=== PATIENT | male | born 1980 | race Caucasian/White ===

== ENCOUNTER 2019-07-07 12:40 | Emergency (ER) | payer MEDICAID ==
[2019-07-07 12:52] VITALS: BP 142/96
[2019-07-07] MEDS ORDERED: SULFAMETH/TRIMETH DS 800/160 MG TABLET PO STA (13:00)
--- NOTE | 2019-07-07 13:03 | ED Physician Documentation ---
PD HPI SKIN - Stated complaint Stated Complaint: LEGS SWOLLEN - Chief complaint Chief Complaint: Wound - History obtained from History obtained from: Patient (Healthy 39-year-old gentleman had what he describes as mosquito bites or bug bites on both legs about 5 days ago and has a pretty aggressive leg swelling especially of the left over the last 4 days with multiple scabbed wounds and ulcers especially in the left leg. He also notes a sore in the right nares. No fevers, chills, body aches, or fatigue.) Review of Systems Constitutional: denies: Fever, Chills, Myalgias, Fatigue, Weight Loss Throat: denies: Sore throat Respiratory: denies: Cough GI: denies: Abdominal Pain, Vomiting, Diarrhea PD PAST MEDICAL HISTORY - Past Medical History Past Medical History: No - Past Surgical History Past Surgical History: No - Present Medications Home Medications: Ambulatory Orders Medication Instructions Recorded Confirmed Clindamycin HCl 300 mg PO Q6H #28 capsule 11/03/13 oxyCODONE/ACET 5/325 [Percocet 5 1 - 2 each PO Q4-6H PRN #20 tablet 11/03/13 mg/325 mg] Chlorhexidine Gluconate [Hibiclens] 10 ml TP DAILY #1 bot 07/07/19 Mupirocin 1 gm LILIANE TID #2 oin.pf.tammy 07/07/19 Sulfamethoxazole/Trimethoprim 1 each PO BID #20 tablet 07/07/19 [Sulfamethoxazole-Tmp Ds Tablet] - Allergies Allergies/Adverse Reactions: Allergies Allergy/AdvReac Type Severity Reaction Status Date / Time No Known Drug Allergies Allergy Verified 11/03/13 02:00 - Social History Does the pt smoke?: Yes Smoking Status: Current every day smoker Does the pt drink ETOH?: Yes PD ED PE NORMAL - Vitals Vital signs reviewed: Yes - General General: Alert and oriented X 3, No acute distress - HEENT HEENT: Moist mucous membranes - Neck Neck: Supple, no meningeal sign, No bony TTP - Extremities Extremities: Other (He has multiple areas on the left leg with shallow dime to nickel sized ulcers, maybe with just a touch of purulent drainage with cellulitis especially the left leg. There was one on the left posterior calf which was cultured during examination.) - Neuro Neuro: Alert and oriented X 3, Normal speech Results - Vitals Vitals: Vital Signs - 24 hr 07/07/19 12:45 Temperature 36.6 C Heart Rate 100 Respiratory 16 Rate Blood Pressure 142/96 H O2 Saturation 99 Oxygen O2 Source Room air PD MEDICAL DECISION MAKING - ED course ED course: This is a 39-year-old gentleman with appears to be staphylococcal cellulitis especially the left leg; probably he is diffusely colonized and is treated with Bactrim, nasal mupirocin and Hibiclens. Departure - Departure Disposition: 01 Home, Self Care Clinical Impression: Cellulitis and abscess of left leg Condition: Good Record reviewed to determine appropriate education?: Yes Instructions: Cellulitis Dc, ED Staph Infec Abx Tx Only Prescriptions: Chlorhexidine Gluconate [Hibiclens] 10 ml TP DAILY #1 bot Mupirocin 1 gm LILIANE TID #2 oin.pf.tammy Sulfamethoxazole/Trimethoprim [Sulfamethoxazole-Tmp Ds Tablet] 1 each PO BID #20 tablet Comments: We are performing a wound culture, the results should be done in 48-72 hours. If antibiotic change is necessary we will call you. Return if worse in the meantime, especially if you develop increased pain, fevers, cannot keep down the medication. Otherwise follow-up with your physician in approximately 2-3 days. Your blood pressure was elevated today on check into the emergency department. This does not mean that you have hypertension, it is a common phenomenon to come to the emergency department and have elevated blood pressure. I recommend that you see your primary care physician within the week to have it rechecked when you are feeling better.
== END 2019-07-07 13:12 | disposition home or self-care (01) ==
LOC: ED 12:40
DX: L02.416 Cutaneous abscess of left lower limb (principal); L03.116 Cellulitis of left lower limb; L97.229 Non-pressure chronic ulcer of left calf with unspecified severity; R03.0 Elevated blood-pressure reading, without diagnosis of hypertension; F17.200 Nicotine dependence, unspecified, uncomplicated
CPT/HCPCS: 87070; 87181; 87205; 99283; A9270

== ENCOUNTER 2020-10-11 15:58 | Emergency (ER) | payer MEDICAID ==
[2020-10-11 16:05] VITALS: BP 126/71
[2020-10-11] MEDS ORDERED: CLINDAMYCIN 150 MG CAPSULE PO STA (16:23)
--- NOTE | 2020-10-11 16:25 | ED Physician Documentation ---
History of Present Illness - Stated complaint Stated Complaint: LEGS ON FIRE/SWOLLEN - Chief complaint Chief Complaint: Ext Problem - History obtained from History obtained from: Patient - Additonal information Additional information: 40yo M presents w/ redness, pain, and swelling in both feet and lower legs. Present on/off for 8+ months, but worsened recently. He sustained a burn on the lateral left lower leg about a month ago which has since healed but then he developed worsening redness and discomfort n the left leg. He now has it in the right leg as well. Pt states he has been intermittently homeless and does wear tight, contricting boots and socks, sometimes for 48+ hours at a time, because he doesn't always have access to wash and change his footwear. His feet get sweaty or wet within the boots and he showed me a video of his feet a few days ago that show wet, wrinkled feet. He is also on his feet a lot and doesn't always have a place where he can lay down and keep feet elevated. He reports hx/o cellulitis, treated w/ clinda in the past which helped. Denies fever or systemic sx. Review of Systems Constitutional: reports: Reviewed and negative Throat: reports: Reviewed and negative Cardiac: reports: Reviewed and negative Respiratory: reports: Reviewed and negative GI: reports: Reviewed and negative : reports: Reviewed and negative Skin: reports: Rash Musculoskeletal: reports: Extremity pain, Extremity swelling. denies: Neck pain, Back pain, Joint pain, Joint swelling Neurologic: reports: Reviewed and negative Psychiatric: reports: Reviewed and negative Endocrine: reports: Reviewed and negative PD PAST MEDICAL HISTORY - Past Medical History Cardiovascular: None Respiratory: None Neuro: None Endocrine/Autoimmune: None GI: None : None HEENT: None Psych: None Musculoskeletal: None Derm: Other - Past Surgical History Past Surgical History: No - Present Medications Home Medications: Ambulatory Orders Medication Instructions Recorded Confirmed Clindamycin HCl 300 mg PO Q6H #28 capsule 11/03/13 oxyCODONE/ACET 5/325 [Percocet 5 1 - 2 each PO Q4-6H PRN #20 tablet 11/03/13 mg/325 mg] Chlorhexidine Gluconate [Hibiclens] 10 ml TP DAILY #1 bot 07/07/19 Mupirocin 1 gm LILIANE TID #2 oin.pf.tammy 07/07/19 Sulfamethoxazole/Trimethoprim 1 each PO BID #20 tablet 07/07/19 [Sulfamethoxazole-Tmp Ds Tablet] Clindamycin [Cleocin] 300 mg PO Q6H 7 Days #42 capsule 10/11/20 - Allergies Allergies/Adverse Reactions: Allergies Allergy/AdvReac Type Severity Reaction Status Date / Time No Known Drug Allergies Allergy Verified 10/11/20 16:01 - Social History Does the pt smoke?: Yes Smoking Status: Current every day smoker Does the pt drink ETOH?: No Does the pt have substance abuse?: Yes Substance Use and Type: Marijuana - Immunizations Immunizations are current?: No Immunizations: TDAP >10years/unknown PD ED PE NORMAL - Vitals Vital signs reviewed: Yes - General General: Alert and oriented X 3, No acute distress, Well developed/nourished - HEENT HEENT: Atraumatic, Moist mucous membranes, Pharynx benign - Neck Neck: Supple, no meningeal sign, No JVD - Cardiac Cardiac: RRR, No murmur, No gallop, No rub - Respiratory Respiratory: No respiratory distress, Clear bilaterally - Abdomen Abdomen: Normal bowel sounds, Soft, Non tender, Non distended - Derm Derm: Other (redness top of foot to mid brizuela bilat following outline of boots/socks, tender but not particularly warm. skin is peeling, dry, wrinkled. bottoms of feet are calloused, slightly whitish and appear to have been wet for prolonged period. no current drainage or abscess noted) - Extremities Extremities: No deformity, Other (edema around both ankles and feet, no calf pain or fullness. full rom of the feet/legs. ) - Neuro Neuro: Alert and oriented X 3 Eye Opening: Spontaneous Motor: Obeys Commands Verbal: Oriented GCS Score: 15 - Psych Psych: Normal mood, Normal affect Results - Vitals Vitals: Vital Signs - 24 hr 10/11/20 16:02 Temperature 36.8 C Heart Rate 98 Respiratory 18 Rate Blood Pressure 126/71 O2 Saturation 100 Oxygen O2 Source Room air PD MEDICAL DECISION MAKING - ED course Complexity details: re-evaluated patient, considered differential, d/w patient ED course: Pt presented with redness and discomfort of both legs. Give his history, suspect trench foot with possible cellulitis as well. I have discussed supportive treatment for mild trenchfoot w/ pt though these measures will be difficult as he does not have a regular place to sleep or access to clean/dry socks and shoes all of the time. I will also treat for possible cellulitis w/ clinda which has been effective for patient in the past. Pt is afebrile w/o any systemic sx so I do not think labs or additional workup is necessary at this time. Pt to follow up with a primary doctor within 1 week (provided with options locally) and I reviewed return precautions n detail w/ pt including fever, increased pain/spreading redness/swelling. Departure - Departure Disposition: Home, Self Care Clinical Impression: Trench feet Cellulitis Qualifiers: Site of cellulitis: extremity Site of cellulitis of extremity: lower extremity Laterality: unspecified laterality Qualified Code(s): L03.119 - Cellulitis of unspecified part of limb Condition: Good Instructions: Cellulitis Dc Prescriptions: Clindamycin [Cleocin] 300 mg PO Q6H 7 Days #42 capsule Comments: You likely have mild trench foot which is redness, pain, and swelling that can occur after prolonged exposure to both hot or cold and wet conditions, especially with constricting boots or socks in place. I am going to treat you for a cellulitis (infection of the skin) but I suspect the redness and discomfort will persist to some degree due to the trenchfoot which can cause nursing home difficulty, especially with recurrent exposure to difficult conditions. Please take antibiotics and try to do the following: Avoid cold/wet conditions. If it is not possible to avoid cold, wet conditions, limit exposure as much as possible. Wear clothing that provides thermal protection but is not constricting. Change socks regularly. This is extremely important. This is especially important for foot gear. Feet should be kept as dry as possible. Vapor barrier boots can be effective in retaining warmth and avoiding wet feet but can become wet from within. Foot care should include changing into dry socks two or three times daily in high-risk conditions. Stay active. Movement is important to maintain adequate circulation in the extremities. Avoid prolonged dependency of the feet and keep your legs elevated when ever possible. Avoid malnutrition, dehydration, and fatigue. Use a hypoallergenic emollient to massage into the feet and legs but only do this if you have time to air them out and keep them dry. Try not to wear socks at night if you are able to be warm enough without them. Please establish care with a primary doctor.
== END 2020-10-11 17:09 | disposition home or self-care (01) ==
LOC: ED 15:58
DX: T69.022A Immersion foot, left foot, initial encounter (principal); T69.021A Immersion foot, right foot, initial encounter; L03.119 Cellulitis of unspecified part of limb; W93.8XXA Exposure to other excessive cold of man-made origin, initial encounter; Z59.0 Homelessness; F17.200 Nicotine dependence, unspecified, uncomplicated
CPT/HCPCS: 99282; 99284; A9270

== ENCOUNTER 2021-03-31 12:19 | Emergency (ER) | payer MEDICAID ==
--- NOTE | 2021-03-31 13:23 | ED Physician Documentation ---
PD HPI HEENT - Stated complaint Stated Complaint: TOOTH PX - Chief complaint Chief Complaint: Heent - History obtained from History obtained from: Patient PD PAST MEDICAL HISTORY - Past Medical History Cardiovascular: None Respiratory: None Neuro: None Endocrine/Autoimmune: None GI: None : None HEENT: None Psych: None Musculoskeletal: None Derm: Other - Past Surgical History Past Surgical History: No - Present Medications Home Medications: Ambulatory Orders Medication Instructions Recorded Confirmed Clindamycin HCl 300 mg PO Q6H #28 capsule 11/03/13 oxyCODONE/ACET 5/325 [Percocet 5 1 - 2 each PO Q4-6H PRN #20 tablet 11/03/13 mg/325 mg] Chlorhexidine Gluconate [Hibiclens] 10 ml TP DAILY #1 bot 07/07/19 Mupirocin 1 gm LILIANE TID #2 oin.pf.tammy 07/07/19 Sulfamethoxazole/Trimethoprim 1 each PO BID #20 tablet 07/07/19 [Sulfamethoxazole-Tmp Ds Tablet] Clindamycin [Cleocin] 300 mg PO Q6H 7 Days #42 capsule 10/11/20 - Allergies Allergies/Adverse Reactions: Allergies Allergy/AdvReac Type Severity Reaction Status Date / Time No Known Drug Allergies Allergy Verified 03/31/21 12:39 - Social History Does the pt smoke?: Yes Smoking Status: Current every day smoker Does the pt drink ETOH?: No Does the pt have substance abuse?: Yes - Immunizations Immunizations are current?: No Immunizations: TDAP >10years/unknown Results - Vitals Vitals: Vital Signs - 24 hr 03/31/21 12:35 Temperature 37 C Heart Rate 92 Respiratory 16 Rate Blood Pressure 140/89 H O2 Saturation 100 Oxygen O2 Source Room air
[2021-03-31] MEDS ORDERED: AMOX/CLAV 875 MG/125 MG TABLET PO STA (13:41)
[2021-03-31] MEDS ORDERED: HYDROcod/ACETAM 5/325 MG TABLET PO STA (13:41)
--- NOTE | 2021-03-31 13:44 | ED Physician Documentation ---
History of Present Illness - Stated complaint Stated Complaint: TOOTH PX - Chief complaint Chief Complaint: Heent - Additonal information Additional information: 41-year-old male presents emergency department for evaluation of acute left lowe r molar pain that began this a.m. When he woke up he had significant pain in the lower jaw and began developing swelling. No fevers, no trismus no dysphonia or dysphagia. He has not seen a dentist for many years. Positive tobacco history no smokeless tobacco. Review of Systems Constitutional: denies: Fever, Chills Eyes: reports: Reviewed and negative Ears: reports: Reviewed and negative Nose: reports: Reviewed and negative Throat: reports: Dental pain / toothache. denies: Swollen tonsils, Swallowed foreign body Cardiac: reports: Reviewed and negative Respiratory: reports: Reviewed and negative GI: reports: Reviewed and negative : reports: Reviewed and negative PD PAST MEDICAL HISTORY - Past Medical History Past Medical History: No Cardiovascular: None Respiratory: None Neuro: None Endocrine/Autoimmune: None GI: None : None HEENT: None Psych: None Musculoskeletal: None Derm: Other - Past Surgical History Past Surgical History: No - Present Medications Home Medications: Ambulatory Orders Medication Instructions Recorded Confirmed Amox/Clav 875/125 [Augmentin] 1 each PO Q12H #20 tablet 03/31/21 HYDROcod/ACETAM 5/325 [[place] 5/325] 1 tab PO BID PRN #10 tablet 03/31/21 Ibuprofen [Motrin] 600 mg PO Q6H PRN #30 tab 03/31/21 - Allergies Allergies/Adverse Reactions: Allergies Allergy/AdvReac Type Severity Reaction Status Date / Time No Known Drug Allergies Allergy Verified 03/31/21 12:39 - Social History Does the pt smoke?: Yes Smoking Status: Current every day smoker Does the pt drink ETOH?: No Does the pt have substance abuse?: Yes Substance Use and Type: Marijuana - Immunizations Immunizations are current?: Yes Immunizations: TDAP >10years/unknown - POLST Patient has POLST: No PD ED PE EXPANDED - General General: Alert. No: No acute distress, Well developed/nourished - HEENT HEENT: Dental decay (Teeth in generally poor repair. Many teeth missing or rotted to the gumline.), Dental TTP (Tooth #19 with tenderness to pressure. Some generalized gumline swelling and erythema without fluctuance or drainage), Dental abscess, Other (Mild left facial swelling lower jaw to the angle of the mandible. No erythema.). No: Dentition normal - Neck Neck: Supple w/out meningeal sx. No: Adenopathy - Cardiac Cardiac: Regular Rate, Radial strong equal, Cap refill < 2 sec. No: Murmur Present - Respiratory Respiratory: Clear to ausultation wallace. No: Distress, Labored Results - Vitals Vitals: Vital Signs - 24 hr 03/31/21 12:35 Temperature 37 C Heart Rate 92 Respiratory 16 Rate Blood Pressure 140/89 H O2 Saturation 100 Oxygen O2 Source Room air PD MEDICAL DECISION MAKING - ED course Complexity details: reviewed results ED course: 41-year-old male presents emergency department with acute left lower jaw facial swelling and dental pain. Has not seen a dentist in many years. Tooth #19 obviously decayed quite tender. Suspect apical abscess at this time patient will be initiated on Augmentin. Advised warm salt water rinses. He will need dentist for further evaluation and treatment. Advised that he should return to the emergency department with increased swelling, any fevers trismus dysphonia or dysphagia. Departure - Departure Disposition: 01 Home, Self Care Clinical Impression: Dental abscess Condition: Stable Record reviewed to determine appropriate education?: Yes Instructions: ED Abscess Dental Prescriptions: Amox/Clav 875/125 [Augmentin] 1 each PO Q12H #20 tablet Ibuprofen [Motrin] 600 mg PO Q6H PRN #30 tab PRN Reason: Pain HYDROcod/ACETAM 5/325 [[place] 5/325] 1 tab PO BID PRN #10 tablet PRN Reason: Pain Comments: Sebastian it is important he see a dentist in the long-term as your tooth likely needs to be extracted in order to have this fully resolved. I have written a prescription for Augmentin that you are to take twice daily for the next 10 days. Please rinse your mouth with warm salty water for 30 seconds 3 times a day. I have prescribed a limited amount of hydrocodone for severe pain only. Do not drive if taking this it can legally intoxicated you. Please return to the emergency department if you have increased facial swelling despite the antibiotics and salt water rinses, cannot swallow or speak normally. Ideally you would be able to schedule an appointment for follow-up with a dentist in about 2 weeks time once this infection has resolved.
[2021-03-31 13:58] VITALS: BP 136/89
== END 2021-03-31 14:07 | disposition home or self-care (01) ==
LOC: ED 12:19
DX: K04.7 Periapical abscess without sinus (principal); F17.200 Nicotine dependence, unspecified, uncomplicated
CPT/HCPCS: 99283; 99284; A9270

== ENCOUNTER 2021-04-26 19:44 | Emergency (ER) | payer MEDICAID ==
--- OUTSIDE RECORDS SUMMARY | 2021-04-26 19:47 | EXTERNAL MEDICAL SUMMARY RPT | Continuity of Care Document ---
:1980 Demographics Phone Unavailable Preferred Language Unknown Marital Status Unknown Anabaptism Affiliation Unknown Race Unknown Ethnic Group Unknown Author Organization [facility] Address [address] [phone] Phone Allergies Encounters Medications Problems Results
--- OUTSIDE RECORDS SUMMARY | 2021-04-26 20:04 | EXTERNAL MEDICAL SUMMARY RPT | Continuity of Care Document ---
:1980 Demographics Phone Unavailable Preferred Language Unknown Marital Status Unknown Spiritism Affiliation Unknown Race Unknown Ethnic Group Unknown Author Organization [facility] Address [address] [phone] Phone Allergies Encounters Medications Problems Results
--- NOTE | 2021-04-26 20:13 | ED Physician Documentation ---
PD HPI LOWER EXT INJURY - Stated complaint Stated Complaint: LT FOOT SWELLING/REDNESS - Chief complaint Chief Complaint: Ext Problem - History obtained from History obtained from: Patient - History of Present Illness PD HPI LOW EXT INJURY LOCATION: Left, Lower leg Type of injury: Other (abrasion sustained 4 days ago) Timing - onset: Last night (swelling, erythema) Improved by: Rest Worsened by: Moving, Palpating Associated symptoms: Swelling, Discolored. No: Weakness, Numbness Recently seen: Not recently seen - Additional information Additional information: patient c/o left leg erythema, swelling, pain, tenderness since last night. He sustained superficial abrasions to the left pretibial surface 4 days ago from a weed aby he was using but did not develop the above symptoms until last night. Review of Systems Constitutional: reports: Myalgias. denies: Fever, Chills, Sweats Skin: reports: Rash Musculoskeletal: reports: Extremity pain, Extremity swelling, Pain with weight bearing PD PAST MEDICAL HISTORY - Past Medical History Past Medical History: Yes Cardiovascular: None Respiratory: None Neuro: None Endocrine/Autoimmune: None GI: None : None HEENT: None Psych: None Musculoskeletal: None Derm: Other - Past Surgical History Past Surgical History: No - Present Medications Home Medications: Ambulatory Orders Medication Instructions Recorded Confirmed Amox/Clav 875/125 [Augmentin] 1 each PO Q12H #20 tablet 03/31/21 HYDROcod/ACETAM 5/325 [[place] 5/325] 1 tab PO BID PRN #10 tablet 03/31/21 Ibuprofen [Motrin] 600 mg PO Q6H PRN #30 tab 03/31/21 Sulfamethox/Trimeth 800/160 1 each PO BID #14 tablet 04/26/21 [Bactrim Ds 800/160] cephALEXin [Keflex] 500 mg PO Q6H #28 04/26/21 - Allergies Allergies/Adverse Reactions: Allergies Allergy/AdvReac Type Severity Reaction Status Date / Time No Known Drug Allergies Allergy Verified 04/26/21 19:59 - Social History Does the pt smoke?: Yes Smoking Status: Current every day smoker Does the pt drink ETOH?: No Does the pt have substance abuse?: Yes - Immunizations Immunizations are current?: Yes Immunizations: TDAP >10years/unknown - POLST Patient has POLST: No PD ED PE NORMAL - Vitals Vital signs reviewed: Yes - General General: Alert and oriented X 3, No acute distress, Well developed/nourished - Cardiac Cardiac: RRR, No murmur - Respiratory Respiratory: No respiratory distress, Clear bilaterally - Abdomen Abdomen: Soft, Non tender - Neuro Neuro: No motor deficit, No sensory deficit PD ED PE EXPANDED - Extremities LAKSHMI LE visual: 1 - rash (confluent, circumferential erythema, swelling, TTP, hot to touch) 2 - abrasion Results - Vitals Vitals: Vital Signs - 24 hr 04/26/21 04/26/21 04/26/21 19:55 20:39 20:44 Temperature 36.9 C Heart Rate 130 H 120 H 75 Respiratory 16 17 15 Rate Blood Pressure 140/85 H 129/84 H O2 Saturation 99 98 97 04/26/21 04/26/21 04/26/21 21:41 22:36 23:14 Temperature 36.8 C Heart Rate 116 H 90 Respiratory 15 15 16 Rate Blood Pressure 126/81 H 122/76 118/74 O2 Saturation 100 100 100 Oxygen O2 Source Room air - Labs Labs: Laboratory Tests 04/26/21 04/26/21 04/26/21 20:03 20:03 20:40 WBC 11.7 H RBC 5.21 Hgb 13.4 L Hct 41.4 L MCV 79.5 L MCH 25.7 L MCHC 32.4 RDW 13.4 Plt Count 259 MPV 9.4 Neut # (Auto) 7.7 H Lymph # (Auto) 2.4 Eddy # (Auto) 1.2 H Eos # (Auto) 0.3 Baso # (Auto) 0.1 Absolute Nucleated RBC 0.00 Nucleated RBC % 0.0 Sodium 135 Potassium 3.8 Chloride 94 L Carbon Dioxide 30 Anion Gap 11.0 BUN 11 Creatinine 0.8 Estimated GFR (MDRD) 107 Glucose 116 H Lactic Acid 0.8 Calcium 9.2 - Rads (name of study) left tib/fib xrays Radiology: Prelim report reviewed, See rad report PD MEDICAL DECISION MAKING - ED course Complexity details: reviewed results, re-evaluated patient, considered differential, d/w patient ED course: LLE cellulitis without crepitus or plain-film evidence of [employer]ATOR FLOW COAT. minimally elevated WBC and normal lactate. will trial outpatient with PO antibiotics (give IV cefazolin in ED and PO bactrim prior to d/c); instructed to return if fever >100.3 or symptoms worsen. Departure - Departure Disposition: Home, Self Care Clinical Impression: Cellulitis Qualifiers: Site of cellulitis: extremity Site of cellulitis of extremity: lower extremity Laterality: left Qualified Code(s): L03.116 - Cellulitis of left lower limb Condition: Good Instructions: ED Infec Skin Cellulitis Prescriptions: Sulfamethox/Trimeth 800/160 [Bactrim Ds 800/160] 1 each PO BID #14 tablet cephALEXin [Keflex] 500 mg PO Q6H #28 Comments: Follow up with your primary care provider in 2-3 days for recheck of the infection. Forms: Activity restrictions Discharge Date/Time: 04/26/21 23:19
[2021-04-26 20:48] LABS: BASOPHILS # (AUTO) 0.1 10^3/uL (0.0-0.1); BASOPHILS % (AUTO) 0.4 %; EOSINOPHILS # (AUTO) 0.3 10^3/uL (0.0-0.7); EOSINOPHILS % (AUTO) 2.1 %; HCT - HEMATOCRIT 41.4 % (42.0-52.0); HGB - HEMOGLOBIN 13.4 g/dL (14.0-18.0); LYMPHOCYTES # (AUTO) 2.4 10^3/uL (1.5-3.5); LYMPHOCYTES % (AUTO) 20.9 %; MEAN CORPUSCULAR HEMOGLOBIN 25.7 pg (27.0-31.0); MEAN CORPUSCULAR HGB CONC 32.4 g/dL (32.0-36.0); MEAN CORPUSCULAR VOLUME 79.5 fL (80.0-94.0); MEAN PLATELET VOLUME 9.4 fL (7.4-11.4); MONOCYTES # (AUTO) 1.2 10^3/uL (0.0-1.0); MONOCYTES % (AUTO) 10.1 %; NEUTROPHILS # (AUTO) 7.7 10^3/uL (1.5-6.6); NEUTROPHILS % (AUTO) 66.2 %; PLT - PLATELET COUNT 259 10^3/uL (130-450); RED BLOOD COUNT 5.21 10^6/uL (4.70-6.10); RED CELL DISTRIBUTION WIDTH 13.4 % (12.0-15.0); WHITE BLOOD COUNT 11.7 x10^3/uL (4.8-10.8)
[2021-04-26] MEDS ORDERED: KETOROLAC 30 MG/ML VIAL IVP STA (20:52)
[2021-04-26 20:54] LABS: CALCIUM 9.2 mg/dL (8.5-10.3); CREATININE 0.8 mg/dL (0.6-1.2); POTASSIUM 3.8 mmol/L (3.5-5.0)
[2021-04-26] MEDS ORDERED: ceFAZolin 1 GM in SODIUM CHLORIDE 0.9% MINIBAG 100 ML IV STA (21:05)
[2021-04-26] MEDS ORDERED: ceFAZolin 1 GM VIAL ONE (21:10)
--- NOTE | 2021-04-26 21:57 | XRAY Report ---
PROCEDURE: Tib/Fib LT INDICATIONS: severe cellulitis TECHNIQUE: 2 views of the tibia and fibula were acquired. COMPARISON: None. FINDINGS: Bones: No acute fractures or dislocations. No suspicious bony lesions. No osseous erosions or corti ld disruption. No suspicious periosteal reaction. Soft tissues: No suspicious soft tissue calcifications or masses. Moderate soft tissue edema overly ing the left lower leg. No evidence for soft tissue gas. IMPRESSION: Moderate soft tissue swelling of the left lower leg without underlying osseous abnormalities. Finding s are compatible with reported history of cellulitis Reviewed by: Orion Robert MD on 04/26/2021 9:56 PM PDT Approved by: Orion oRbert MD on 04/26/2021 9:56 PM PDT Station ID: [id number]
[2021-04-26] MEDS ORDERED: SULFAMETH/TRIMETH DS 800/160 MG TABLET PO STA (23:00)
[2021-04-26 23:15] VITALS: BP 118/74
== END 2021-04-26 23:19 | disposition home or self-care (01) ==
LOC: SUPCPDRO 19:44 → ED 19:44
DX: L03.116 Cellulitis of left lower limb (principal); S80.812A Abrasion, left lower leg, initial encounter; W29.3XXA Contact with powered garden and outdoor hand tools and machinery, initial encounter; Y93.H2 Activity, gardening and landscaping; F17.200 Nicotine dependence, unspecified, uncomplicated
CPT/HCPCS: 36415; 73590; 80048; 83605; 85025; 87040; 96365; 96375; 99284; A9270

== ENCOUNTER 2021-08-11 21:16 | Outpatient (CLI) | payer MEDICAID | END 2021-08-11 21:17 | disposition left against medical advice (07) | LOC: EMS 21:16 | DX: R55 Syncope and collapse (principal); R06.89 Other abnormalities of breathing ==